=== PATIENT | male | born 1985 | race Caucasian/White ===

== ENCOUNTER 2021-03-02 16:41 | Observation (INO) | payer OTHER ==
[~2021-03-02] VITALS: Ht 180.3 cm; Wt 89.8 kg
[2021-03-02 16:49] VITALS: BP 136/79
[2021-03-02 17:25] LABS: ABSOLUTE EOSINOPHILS 0.1 thou/uL (0.0-0.7); ABSOLUTE LYMPHOCYTES 2.1 thou/uL (0.8-5.3); ABSOLUTE NEUTROPHILS 2.5 thou/uL (1.6-8.1); BASOPHILS 0.7 %; EOSINOPHILS 2.6 %; LYMPHOCYTES 36.5 %; MCH 31.8 pg (26.0-34.0); MCHC 35.6 g/dL (28.0-37.0); MCV 89.2 fL (80.0-100.0); MONOCYTES 16.8 %; MPV 8.4 fl. (7.2-11.1); NUCLEATED RBCS 0 /100WBC; PLATELET COUNT* 323 thou/uL (150-400); POLYS 43.4 %; RDW-CV 12.9 % (10.5-14.5); WBC 5.7 thou/uL (4.0-11.0)
[2021-03-02 17:41] LABS: CALCIUM 9.3 mg/dL (8.5-10.1); CREATININE 1.1 mg/dL (0.6-1.3); POTASSIUM 3.2 mmol/L (3.5-5.1)
[2021-03-02 17:49] LABS: ALBUMIN 4.8 g/dL (3.4-5.0); MAGNESIUM 1.6 mg/dL (1.8-2.4); TOTAL BILIRUBIN 0.6 mg/dL (<0.1-1.0); TOTAL PROTEIN 8.1 g/dL (6.4-8.2)
[2021-03-02 21:15] VITALS: BP 114/72
[2021-03-02 22:30] VITALS: BP 112/53
[2021-03-03 00:27] VITALS: BP 104/63
[2021-03-03 05:07] VITALS: BP 109/60
[2021-03-03 07:26] LABS: CHOLESTEROL 159 mg/dL (<200); HDL CHOLESTEROL 42 mg/dL (>40); LDL CHOLESTEROL 106 mg/dL (<100); SERUM ASSESSMENT Clear; TC:HDL 3.8 Ratio (Not establshd); TRIGLYCERIDE 56 mg/dL (<150); VLDL 11 mg/dL (<40)
[2021-03-03 08:00] VITALS: BP 103/53
[2021-03-03 10:29] LABS: ALBUMIN 4.2 g/dL (3.4-5.0); CALCIUM 8.9 mg/dL (8.5-10.1); CREATININE 0.9 mg/dL (0.6-1.3); TOTAL BILIRUBIN 0.6 mg/dL (<0.1-1.0); TOTAL PROTEIN 7.2 g/dL (6.4-8.2)
[2021-03-03 10:46] LABS: POTASSIUM 4.3 mmol/L (3.5-5.1)
[2021-03-03 12:00] VITALS: BP 100/58
[2021-03-03 16:00] VITALS: BP 109/58
[2021-03-03 17:30] VITALS: BP 100/58
[2021-03-04 05:36] LABS: GLYCOHEMOGLOBIN (HGB A1C) 5.4 % (4.8-5.6)
== END 2021-03-03 18:00 | disposition home or self-care (01) ==
LOC: M.ERS 16:41 → M.TBA-ER 18:26 → M.2W 21:20
PROVIDERS: Emergency Medicine Emergency Medical Services; Internal Medicine; ADMIT Internal Medicine; ATTEND Internal Medicine
DX: G45.9 Transient cerebral ischemic attack, unspecified (principal); E87.6 Hypokalemia; R07.89 Other chest pain; Z20.822 Contact with and (suspected) exposure to COVID-19; R55 Syncope and collapse